=== PATIENT | male | born 2000 | race Caucasian/White ===

== ENCOUNTER 2022-07-25 05:17 | Emergency (ER) | payer OTHER ==
[~2022-07-25] VITALS: Ht 182.9 cm; Wt 106.0 kg
[2022-07-25] MEDS ORDERED: SODIUM CHLORIDE 0.9% 1,000 ML IV ONE (06:00)
[2022-07-25] MEDS ORDERED: METHYLPREDNISOLONE SOD SUCC 40 MG/ML (ACT-O-VIAL) IV ONE (06:00)
[2022-07-25] MEDS ORDERED: CEFTRIAXONE 1GM PREMIX 50 ML IV ONE (06:00)
[2022-07-25 07:06] LABS: CHLORIDE 105 mEq/L (98-107)
[2022-07-25 07:08] LABS: HEMATOCRIT. 42.2 % (42.0-52.0); HEMOGLOBIN. 14.2 g/dL (14.0-18.0); MEAN CORPUSCULAR HEMOGLOBIN 27.5 pg (28.0-32.0); MEAN CORPUSCULAR VOLUME 81.6 fL (80.0-94.0); MEAN PLATELET VOLUME 7.1 fl (7.4-10.4); PLATELET 311 x1000/uL (130-400); RED BLOOD CELL COUNT 5.17 mill/uL (4.7-6.1); RED CELL DISTRIBUTION WIDTH 12.9 % (11.6-14.6)
[2022-07-25 08:00] LABS: MONOTEST NEGATIVE (NEGATIVE)
[2022-07-25 08:43] LABS: PLATELET ESTIMATE NORMAL
[2022-07-25] MEDS ORDERED: PENI500T MT (08:47)
[2022-07-25] MEDS ORDERED: MED4 MT (08:47)
[2022-07-25 08:52] VITALS: BP 153/79
== END 2022-07-25 09:07 | disposition home or self-care (01) ==
LOC: ER 05:17
DX: J03.90 Acute tonsillitis, unspecified (principal)
CPT/HCPCS: 36415; 80053; 85025; 86308; 87070; 87430; 96365; 96375; 99284; J0696; J2920; J7030; Z7610